=== PATIENT | female | born 1955 | race African-American/Black ===

== ENCOUNTER 2016-11-09 20:50 | Emergency (ER) | payer SELFPAY ==
[~2016-11-09] VITALS: Ht 165.1 cm; Wt 67.8 kg
[2016-11-09 22:27] LABS: HEMATOCRIT 34.8 % (36.0-46.0); MCH 25.6 PG (29.0-34.0); MCHC 32.2 G/DL (30.0-36.0); MCV 79.6 FL (83-99); MEAN PLAT.VOLUME 10.3 uM^3 (9.5-12.4); PLATELET COUNT 254 K/uL (156-360); RBC DIS.WIDTH-CV 14.5 % (11.8-14.6); RBC DIS.WIDTH-SD 41.3 % (39-53); RED BLOOD COUNT 4.37 M/uL (3.80-5.20); WHITE BLOOD COUNT 8.8 K/uL (4.1-10.2)
[2016-11-09 22:36] LABS: CHLORIDE 103 mEq/L (99-109); SODIUM 139 mEq/L (136-147)
[2016-11-09 22:38] LABS: GLUCOSE 98 mg/dL (70-99)
[2016-11-09 22:39] LABS: ANION GAP 11 MEQ/L (2-14)
[2016-11-09 22:43] LABS: GFR ESTIMATE (CALCULATED) > 59 mL/min/; UREA NITROGEN (BUN) 15 mg/dL (9-23)
[2016-11-10] MEDS ORDERED: CLEOCIN300 MG PO ×2 (00:11→00:13)
[2016-11-10 00:23] VITALS: BP 152/79
== END 2016-11-10 00:24 | disposition home or self-care (01) ==
LOC: EME 20:50 → RME 20:50
PROVIDERS: Physician Assistant
PROC: 0H9KXZZ Drainage of Right Lower Leg Skin, External Approach (ICD-10-PCS; principal; 2016-11-09)
DX: L02.415 Cutaneous abscess of right lower limb (principal); L03.115 Cellulitis of right lower limb
CPT/HCPCS: 80048; 85027; 87070; 87075; 87205; 99281; 99284